=== PATIENT | female | born 1990 | race Caucasian/White ===

== ENCOUNTER 2017-01-19 13:08 | Emergency (ER) | payer OTHER, BC ==
[~2017-01-19] VITALS: Ht 162.6 cm; Wt 57.0 kg
[2017-01-19 13:14] VITALS: TEMP 36.9; Ht 162.6 cm; Wt 57.0 kg
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
[2017-01-19] MEDS ORDERED: PRENTAB26 PO (14:23)
[2017-01-19] MEDS ORDERED: DOXY25TA7 (14:23)
[2017-01-19] MEDS ORDERED: PYRI1TAB30 (14:23)
[2017-01-19 14:27] VITALS: BP 116/67; PULSE 76; O2SAT 98
== END 2017-01-19 14:29 | disposition home or self-care (01) ==
LOC: C.EDB 13:09 → C.EDA 14:29
DX: T23.032A Burn of unspecified degree of multiple left fingers (nail), not including thumb, initial encounter (principal); X58.XXXA Exposure to other specified factors, initial encounter; Y99.0 Civilian activity done for income or pay

== ENCOUNTER → 2017-03-06 | Outpatient (CLI) | payer BC ==
[~2017-03-06] MED LIST: DOXY25TA7; PRENTAB26 PO; PYRI1TAB30
[2017-03-06 11:11] LABS: GTGD 50 Grams
[2017-03-07 16:29] LABS: AFP CONCENTRATION 33.9 NG/ML; AFP MULTIPLE OF MEDIAN 0.92; AFPTS INSULIN DEP DIABETIC? NO; AFPTS MATERNAL WT 125 LBS; ALPHA-FETOPROTEIN RACE CAUCASIAN=W; CIGARETTE SMOKER? NOT PROVIDED; HISTORY OF NTD NO; REPEAT SAMPLE? NO
== END | disposition home or self-care (01) ==
LOC: C.LAB1850 08:56
PROVIDERS: ATTEND Obstetrics & Gynecology
DX: Z34.02 Encounter for supervision of normal first pregnancy, second trimester (principal); Z3A.00 Weeks of gestation of pregnancy not specified

== ENCOUNTER → 2017-05-28 | Outpatient (CLI) | payer BC ==
[~2017-05-28] MED LIST changes: -DOXY25TA7; +DOXY25TA8
[2017-05-28 12:12] LABS: HEMATOCRIT 37.4 % (37-47); HEMOGLOBIN 12.9 g/dL (12.0-16.0)
== END | disposition home or self-care (01) ==
LOC: C.LAB1850 10:17
PROVIDERS: ATTEND Obstetrics & Gynecology
DX: Z34.03 Encounter for supervision of normal first pregnancy, third trimester (principal)

== ENCOUNTER → 2017-05-29 | Outpatient (CLI) | payer BC | END | disposition home or self-care (01) | LOC: C.LAB1850 08:23 | PROVIDERS: ATTEND Obstetrics & Gynecology | DX: Z34.03 Encounter for supervision of normal first pregnancy, third trimester (principal) ==

== ENCOUNTER 2017-07-12 23:21 | Emergency (ER) | payer OTHER, BC ==
[~2017-07-12] VITALS: Ht 162.6 cm; Wt 71.4 kg
[2017-07-12 23:25] VITALS: TEMP 36.8; Ht 162.6 cm; Wt 71.4 kg
[2017-07-12] MEDS ORDERED: AMPICILLIN/SULBACTAM SOD INJ 3,000 MG in SODIUM CHLORIDE 0.9% 100ML 100 ML IV STA (23:49)
[2017-07-13 00:14] LABS: BASO % 0.3 %; BASO ABS # 0.03 K/uL (0-0.2); EOS % 0.8 %; EOS ABS # 0.09 K/uL (0-0.5); HEMATOCRIT 38.2 % (37-47); HEMOGLOBIN 13.3 g/dL (12.0-16.0); IG# 0.09 K/uL (0.00-0.02); LYMPH % 19.6 %; LYMPH ABS # 2.25 K/uL (1.2-3.4); MEAN CELL VOLUME 87.6 fL (80-100); MEAN CORPUSCULAR HEMOGLOBIN 30.5 pg (25-34); MEAN CORPUSCULAR HGB CONC 34.8 g/dl (32-36); MEAN PLATELET VOLUME 10.3 fL (7.4-10.4); MONO % 9.6 %; NEUT % 68.9 %; NEUT ABS # 7.94 K/uL (1.4-6.5); PLATELET COUNT 192 K/uL (130-400); RED CELL DISTRIBUTION WIDTH CV 12.5 % (11.5-14.5); RED CELL DISTRIBUTION WIDTH SD 39.9 fL (36.4-46.3)
[2017-07-13 00:43] LABS: ALBUMIN 2.8 gm/dl (3.4-5.0); ALT/SGPT 20 U/L (12-78); AST/SGOT 17 U/L (15-37); BLOOD UREA NITROGEN 8 mg/dl (7-18); CARBON DIOXIDE 22 mmol/L (21-32); CREATININE 0.45 mg/dl (0.60-1.20); GLUCOSE 88 mg/dl (70-99); POTASSIUM 3.8 mmol/L (3.5-5.1); SODIUM 138 mmol/L (136-145)
[2017-07-13 00:46] LABS: ALKALINE PHOSPHATASE 173 U/L (45-117); TOTAL PROTEIN 6.8 gm/dl (6.4-8.2)
[2017-07-13 01:09] VITALS: BP 122/81; PULSE 87; O2SAT 96
--- NOTE | 2017-07-13 03:22 | EMERGENCY ROOM VISIT NOTE ---
History First contact with patient: 23:30 Chief Complaint: BITE Stated Complaint: BIT BY CAT- History of Present Illness The patient is a 26 year old female who presents to the Emergency Room with complaints of cat bite to her left third finger that occurred yesterday. 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 The animal bit into her finger, causing injury. The animal is an indoor house cat and is currently under quarantine. It is felt to be at low risk for rabies. The patient does have a previous rabies immunization because of her employment. Tetanus is up to date. The patient went to an urgent care clinic after the injury and was started on Augmentin. She is concerned as she has developed worsening swelling and pain into the finger despite the antibiotics. She is 34 weeks . She is having difficulty opening and closing the hand because of the swelling. She rates her current discomfort a 7/10 that has not improved significantly with Tylenol. Review of Systems More than 10 systems were reviewed and otherwise negative with the exception of history of present illness. Past Medical/Surgical History No chronic medical disease Family History No pertinent family history Social History Smoking Status: Never Smoker Current/Historical Medications Scheduled Multivit/Min/Iron/Fol Ac/Pren ( Vitamin), 1 TAB PO DAILY Miscellaneous Medications Doxylamine Succinate (Sleep) (Unisom), 25 Pyridoxine HCl (B6 Natural) Physical Exam Vital Signs Date Time Temp Pulse Resp B/P (MAP) Pulse Ox O2 Delivery O2 Flow Rate FiO2 07/13/17 01:09 87 16 122/81 96 07/13/17 00:39 87 16 122/81 96 Room Air 07/12/17 23:25 36.8 97 20 138/87 96 Room Air Physical Exam VITALS: Vitals are noted on the nurse's note and reviewed by myself. Vital signs stable. GENERAL: Well-developed, well-nourished, white female, who is in no acute distress and resting comfortably. Patient is cooperative with the examination. HEAD: Normocephalic atraumatic. HEART: Regular rate and rhythm without murmurs gallops or rubs. LUNGS: Clear to auscultation bilaterally without wheezes, rales or rhonchi. No retractions or accessory muscle use. MUSCULOSKELETAL: There is erythema and edema appreciated across the proximal aspect of the left third finger. There appears to be a puncture type wound on the palmar aspect and superficial abrasion on the dorsal aspect of this digit. The proximal palmar aspect is the most tender, and package designer strength is 3/5. There is no active purulent drainage noted. Sensation is intact to the distal digit. No significant lymphangitic streaking noted. NEURO: Patient was alert and oriented to person place and time. CN II through XII grossly intact. Medical Decision & Procedures Laboratory Results 07/13/17 00:00 Red Blood Count 4.36, Mean Corpuscular Volume 87.6, Mean Corpuscular Hemoglobin 30.5, Mean Corpuscular Hemoglobin Concent 34.8, Mean Platelet Volume 10.3, Neutrophils (%) (Auto) 68.9, Lymphocytes (%) (Auto) 19.6, Monocytes (%) (Auto) 9.6, Eosinophils (%) (Auto) 0.8, Basophils (%) (Auto) 0.3, Neutrophils # (Auto) 7.94, Lymphocytes # (Auto) 2.25, Monocytes # (Auto) 1.10, Eosinophils # (Auto) 0.09, Basophils # (Auto) 0.03 07/13/17 00:00 Test 07/13/17 00:00 White Blood Count 11.50 K/uL (4.8-10.8) Red Blood Count 4.36 M/uL (4.2-5.4) Hemoglobin 13.3 g/dL (12.0-16.0) Hematocrit 38.2 % (37-47) Mean Corpuscular Volume 87.6 fL (80-100) Mean Corpuscular Hemoglobin 30.5 pg (25-34) Mean Corpuscular Hemoglobin Concent 34.8 g/dl (32-36) Platelet Count 192 K/uL (130-400) Mean Platelet Volume 10.3 fL (7.4-10.4) Neutrophils (%) (Auto) 68.9 % Lymphocytes (%) (Auto) 19.6 % Monocytes (%) (Auto) 9.6 % Eosinophils (%) (Auto) 0.8 % Basophils (%) (Auto) 0.3 % Neutrophils # (Auto) 7.94 K/uL (1.4-6.5) Lymphocytes # (Auto) 2.25 K/uL (1.2-3.4) Monocytes # (Auto) 1.10 K/uL (0.11-0.59) Eosinophils # (Auto) 0.09 K/uL (0-0.5) Basophils # (Auto) 0.03 K/uL (0-0.2) RDW Standard Deviation 39.9 fL (36.4-46.3) RDW Coefficient of Variation 12.5 % (11.5-14.5) Immature Granulocyte % (Auto) 0.8 % Immature Granulocyte # (Auto) 0.09 K/uL (0.00-0.02) Anion Gap 7.0 mmol/L (3-11) Est Creatinine Clear Calc Drug Dose 185.2 ml/min Estimated GFR () > 150.0 Estimated GFR (Non- 139.3 BUN/Creatinine Ratio 16.7 (10-20) Calcium Level 9.0 mg/dl (8.5-10.1) Total Bilirubin 0.4 mg/dl (0.2-1) Aspartate Amino Transf (AST/SGOT) 17 U/L (15-37) Alanine Aminotransferase (ALT/SGPT) 20 U/L (12-78) Alkaline Phosphatase 173 U/L (45-117) Total Protein 6.8 gm/dl (6.4-8.2) Albumin 2.8 gm/dl (3.4-5.0) Globulin 4.0 gm/dl (2.5-4.0) Albumin/Globulin Ratio 0.7 (0.9-2) Medications Administered Medications (Trade) Dose Ordered Sig/Bg Route Start Time Stop Time Status Last Admin Dose Admin Ampicillin Sodium/ Sulbactam Sodium 3000 mg/Sodium Chloride 108 ml @ 200 mls/hr NOW STAT IV 07/12/17 23:49 07/13/17 00:21 DC 07/13/17 00:07 200 MLS/HR ED Course Physical exam and history were performed. Nursing notes, EMR, and Medication List were personally reviewed. Patient appears to have a cat bite cellulitis. She is currently on Augmentin, and based on her exam her infection appears to be worsening rather than improving. She has been on the antibiotics for less than 24 hours at this point. IV access was established and labs were obtained. The patient was given Unasyn IV. She does have a slightly elevated white blood cell count of 11 ,000. She does not have a gross anemia or significant electrolyte imbalance. Cat bite form was completed. Overall the patient appears well for discharge home. I do not appreciate a distinct abscess or obvious signs of tenosynovitis today. I suspect she needs more time for therapy to improve her symptoms, however I am guarded with her condition, and want her to be rechecked in 12-24 hours. 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 The patient is to continue her Augmentin. She was pleased with this plan and voiced understanding. She rated her discomfort a 1/10 at the time of departure. The chart was completed utilizing [employer] Speech Voice Recognition Software. Grammatical errors, random word insertions, pronoun errors, and incomplete sentences are an occasional consequence of this system due to software limitations, ambient noise, and hardware issues. Any formal questions or concerns about the content, text, or information contained within the body of this dictation should be directly addressed to the provider for clarification. . Medical Decision Differential diagnosis: Etiologies such as cellulitis, abscess, MRSA infection, DVT, necrotizing fasciitis, dermatitis, drug eruption, as well as others were entertained.. Impression Primary Impression: Cat bite Additional Impression: Cellulitis Departure Information Dispostion Home / Self-Care Condition GOOD Forms HOME CARE DOCUMENTATION FORM, IMPORTANT VISIT INFORMATION Patient Instructions My [facility] Additional Instructions You were seen and evaluated today on an emergency basis only. This is not a substitute for, or an effort to provide, complete comprehensive medical care. It is not possible to recognize and treat all injuries or illnesses in a single emergency department visit. For this reason it is recommended that you followup with your Workmen's field technical specialist later today. If you are unable to be seen please return to the emergency department for a recheck. Continue the Augmentin as previously prescribed You are welcome to return to the emergency department anytime with new, worsening, or concerning symptoms. Problem Qualifiers
== END 2017-07-13 01:09 | disposition home or self-care (01) ==
LOC: C.EDB 23:23 → C.EDA 07-13 01:09
DX: L03.012 Cellulitis of left finger (principal); S61.252A Open bite of right middle finger without damage to nail, initial encounter; W55.01XA Bitten by cat, initial encounter; Z3A.34 34 weeks gestation of pregnancy; D72.829 Elevated white blood cell count, unspecified

== ENCOUNTER 2017-07-13 18:41 | Emergency (ER) | payer OTHER, BC ==
[~2017-07-13] VITALS: Ht 162.6 cm; Wt 71.8 kg
[2017-07-13 18:55] VITALS: BP 128/76; TEMP 36.8; Ht 162.6 cm; Wt 71.8 kg
[2017-07-13 19:20] VITALS: PULSE 100; O2SAT 96
--- NOTE | 2017-07-13 21:47 | EMERGENCY ROOM VISIT NOTE ---
ED Visit Note First contact with patient: 19:03 Chief Complaint: Wound recheck. History of Present Illness: Ms. eFlton is a 26-year-old white female who ambulates into the ED accompanied by male friend requesting a recheck on the wound she sustained from a cat bite 2 days ago. Patient reports she was seen in the emergency department last night by Mr. Randall Marin PA-C after being bit by a cat the day prior to arrival at work. She reports she was seen at a local urgent care center and started on Augmentin but her pain and swelling continued and she developed a lymphangitic streak on the dorsal aspect of the hand. She was given a IV dose of Unasyn on last night' s ED visit. He encouraged her to continue her antibiotics and return to the ED tonight for recheck. Currently she reports she is feeling much better. She reports almost complete resolution of her lymphangitic streak and decreased overall general swelling and pain. She also reports she has not developed any fevers or any numbness and tingling in the left middle finger. She has noted some mild increase in redness over the medial aspect of the finger where she was bit by the cat and has noted a mild amount of bloody drainage from the wound; she did report a puncture wound was made in the wound last night and it is from the puncture site that she is seeing a bloody drainage. She is currently denying any other associated symptoms per Review of Systems: As noted above in history of present illness. Physical Examination: Vital Signs: Date Time Temp Pulse Resp B/P (MAP) Pulse Ox O2 Delivery O2 Flow Rate FiO2 07/13/17 19:20 100 96 07/13/17 18:55 36.8 100 18 128/76 96 Room Air GENERAL: 26-year-old female in mild distress due to pain, nontoxic-appearing, afebrile and hemodynamically stable. NEUROLOGICAL: Awake, alert and oriented to person, place and time. Answering questions appropriately and following commands. SKIN: Warm, dry and pink. LEFT MIDDLE FINGER: Mild swelling around the PIP joint with an area of redness over the medial aspect of the joint in the area of one puncture wound. She reports the swelling has slightly decreased since her visit to the ED yesterday. She showed me where the lymphangitic streak was noted over the dorsal aspect of the hand from the wound to the proximal aspect of the third metacarpal and that has subsequently resolved. LEFT MIDDLE FINGER: No gross bony deformity. Soft tissues described above under skin: She has full range of motion of the MCP joint and DIP joint but still has some mild swelling around the PIP joint. She does report her range of motion has increased. Throughout the finger she was able to distinguish light sensations. Capillary refill was brisk. ED Course: Patient was assessed as noted above. Patient's medication list was reviewed. Patient was educated about today's findings and instructed on her treatment plan ; she verbalized understanding and agreement with this plan. Clinical Impression: Wound recheck. Wound appears improved from yesterday's description. Disposition: Patient discharged home in stable condition; prior to departure she was reassessed and subjectively reported she was feeling better and rated her discomfort 1/10. Plan: Patient was encouraged to continue her antibiotics until complete. Patient was encouraged to continue to use Tylenol as needed for pain. Patient was encouraged to return to the ED for increasing redness, redevelopment of her red streak, fevers, uncontrolled pain or any new/ concerning symptoms.
== END 2017-07-13 19:20 | disposition home or self-care (01) ==
LOC: C.EDB 18:43 → C.EDD 19:20
DX: S61.252A Open bite of right middle finger without damage to nail, initial encounter (principal); W55.01XA Bitten by cat, initial encounter

== ENCOUNTER → 2017-07-23 | Outpatient (CLI) | payer BC | END | disposition home or self-care (01) | LOC: C.LABSPEC 17:45 | PROVIDERS: ATTEND Obstetrics & Gynecology | DX: Z34.03 Encounter for supervision of normal first pregnancy, third trimester (principal); Z3A.00 Weeks of gestation of pregnancy not specified ==